=== PATIENT | female | born 1985 | race Caucasian/White ===

== ENCOUNTER 2019-07-06 08:32 | Emergency (ER) | payer OTHER ==
[~2019-07-06] VITALS: Ht 160 cm; Wt 113.4 kg
[2019-07-06] MEDS ORDERED: THYROMIN (08:46)
[2019-07-06] MEDS ORDERED: MINIVELLE1 EAC1 TOP (08:46)
[2019-07-06] MEDS ORDERED: TESSALON PERLE100 M1 PO (08:50)
[2019-07-06] MEDS ORDERED: VENTOLIN HFA 1818 GM INH (08:50)
[2019-07-06 09:39] VITALS: BP 132/72
== END 2019-07-06 09:40 | disposition home or self-care (01) ==
LOC: M.ERS 08:32
DX: J00 Acute nasopharyngitis [common cold] (principal); E03.9 Hypothyroidism, unspecified; Z88.1 Allergy status to other antibiotic agents; Z88.8 Allergy status to other drugs, medicaments and biological substances; Z85.41 Personal history of malignant neoplasm of cervix uteri

== ENCOUNTER 2020-08-17 14:56 | Emergency (ER) | payer OTHER ==
[~2020-08-17] VITALS: Ht 162.6 cm; Wt 127.0 kg
[~2020-08-17 14:56] MED LIST: MINIVELLE1 EAC1 TOP; TESSALON PERLE100 M1 PO; THYROMIN; VENTOLIN HFA 1818 GM INH
[2020-08-17] MEDS ORDERED: PROTONIX40 M2 PO (15:14)
[2020-08-17] MEDS ORDERED: SYNTHROID200 MCG PO (15:14)
[2020-08-17] MEDS ORDERED: ZOFRAN ODT4 MG PO (15:14)
[2020-08-17 15:45] LABS: INFLUENZA A ANTIGEN Negative (Negative); INFLUENZA B ANTIGEN Negative (Negative)
[2020-08-17] MEDS ORDERED: MECLIZINE HCL25 MG PO ×2 (16:47→16:57)
[2020-08-17] MEDS ORDERED: VENTOLIN HFA 1818 GM INH ×2 (16:47→16:57)
[2020-08-17 17:07] VITALS: BP 130/70
== END 2020-08-17 17:07 | disposition home or self-care (01) ==
LOC: M.ERS 14:56
PROVIDERS: Nurse Practitioner Family
DX: U07.1 COVID-19 (principal); E03.9 Hypothyroidism, unspecified; M79.7 Fibromyalgia; Z90.710 Acquired absence of both cervix and uterus; Z90.49 Acquired absence of other specified parts of digestive tract; Z88.3 Allergy status to other anti-infective agents; Z79.899 Other long term (current) drug therapy

== ENCOUNTER 2020-11-03 10:45 | Emergency (ER) | payer OTHER ==
[~2020-11-03] VITALS: Ht 160 cm; Wt 127.0 kg
[~2020-11-03 10:45] MED LIST changes: +MECLIZINE HCL25 MG PO; +PROTONIX40 M2 PO; +SYNTHROID200 MCG PO; +ZOFRAN ODT4 MG PO
[2020-11-03] MEDS ORDERED: CLIMARA1 EAC3 TRANSDERM (10:59)
[2020-11-03 11:22] LABS: ABSOLUTE EOSINOPHILS 0.1 thou/uL (0.0-0.7); ABSOLUTE LYMPHOCYTES 0.6 thou/uL (0.8-5.3); ABSOLUTE MONOCYTES 0.4 thou/uL (0.0-1.2); BASOPHILS 0.9 %; EOSINOPHILS 1.8 %; HEMATOCRIT 42.9 % (37.0-47.0); HEMOGLOBIN 14.6 gm/dL (12.0-15.0); LYMPHOCYTES 15.3 %; MCH 29.9 pg (26.0-34.0); MCHC 34.1 g/dL (28.0-37.0); MCV 87.8 fL (80.0-100.0); MONOCYTES 9.6 %; MPV 7.1 fl. (7.2-11.1); NUCLEATED RBCS 0 /100WBC; PLATELET COUNT* 230 thou/uL (150-400); POLYS 72.4 %; RBC 4.89 mil/uL (4.20-5.00); RDW-CV 13.9 % (10.5-14.5); WBC 4.1 thou/uL (4.0-11.0)
[2020-11-03 11:34] LABS: CALCIUM 9.1 mg/dL (8.5-10.1); CREATININE 0.8 mg/dL (0.6-1.3)
[2020-11-03 11:39] LABS: ALBUMIN 3.6 g/dL (3.4-5.0); TOTAL BILIRUBIN 0.6 mg/dL (<0.1-1.0); TOTAL PROTEIN 7.6 g/dL (6.4-8.2)
[2020-11-03 11:55] LABS: URINE BILIRUBIN NEGATIVE (Negative); URINE BLOOD NEGATIVE (Negative); URINE CLARITY CLEAR; URINE COLOR YELLOW; URINE GLUCOSE-RANDOM NEGATIVE (Negative); URINE KETONES NEGATIVE (Negative); URINE LEUKOCYTES-REFLEX NEGATIVE (Negative); URINE NITRITE-REFLEX NEGATIVE (Negative); URINE PROTEIN NEGATIVE (Negative); URINE SPECIFIC GRAVITY >= 1.030 (1.005-1.030); URINE UROBILINOGEN 0.2 E.U./dl (0.2-1.0)
[2020-11-03] MEDS ORDERED: ONDANSETRON ODT4 MG PO (12:56)
[2020-11-03] MEDS ORDERED: APAP W/CODEINE1 TA2 PO (12:58)
[2020-11-03 13:17] VITALS: BP 114/65
== END 2020-11-03 13:17 | disposition home or self-care (01) ==
LOC: M.ERS 10:45
PROVIDERS: Physician Assistant
DX: R11.2 Nausea with vomiting, unspecified (principal); M25.572 Pain in left ankle and joints of left foot; R19.7 Diarrhea, unspecified; R10.84 Generalized abdominal pain; M79.7 Fibromyalgia; E03.9 Hypothyroidism, unspecified; Z90.711 Acquired absence of uterus with remaining cervical stump; Z85.41 Personal history of malignant neoplasm of cervix uteri; Z79.899 Other long term (current) drug therapy; Z88.1 Allergy status to other antibiotic agents; Z88.8 Allergy status to other drugs, medicaments and biological substances; Z91.010 Allergy to peanuts

== ENCOUNTER 2020-11-19 21:18 | Emergency (ER) | payer OTHER ==
[~2020-11-19] VITALS: Ht 160 cm; Wt 122.5 kg
[~2020-11-19 21:18] MED LIST changes: +APAP W/CODEINE1 TA2 PO; +CLIMARA1 EAC3 TRANSDERM; +ONDANSETRON ODT4 MG PO
[2020-11-19 22:05] LABS: ABSOLUTE BASOPHILS 0.1 thou/uL (0.0-0.2); ABSOLUTE EOSINOPHILS 0.1 thou/uL (0.0-0.7); ABSOLUTE LYMPHOCYTES 0.9 thou/uL (0.8-5.3); ABSOLUTE MONOCYTES 0.6 thou/uL (0.0-1.2); BASOPHILS 1.1 %; EOSINOPHILS 1.9 %; HEMATOCRIT 40.2 % (37.0-47.0); HEMOGLOBIN 13.6 gm/dL (12.0-15.0); LYMPHOCYTES 19.1 %; MCH 29.7 pg (26.0-34.0); MCHC 33.9 g/dL (28.0-37.0); MCV 87.7 fL (80.0-100.0); MONOCYTES 13.2 %; MPV 7.2 fl. (7.2-11.1); NUCLEATED RBCS 0 /100WBC; PLATELET COUNT* 218 thou/uL (150-400); POLYS 64.7 %; RBC 4.58 mil/uL (4.20-5.00); RDW-CV 13.2 % (10.5-14.5); WBC 4.7 thou/uL (4.0-11.0)
[2020-11-19 22:13] LABS: CALCIUM 8.8 mg/dL (8.5-10.1); CREATININE 0.9 mg/dL (0.6-1.3); POTASSIUM 4.2 mmol/L (3.5-5.1)
[2020-11-19 22:16] LABS: APTT 26.6 Seconds (25.0-31.3); INR 0.9
[2020-11-19 22:17] LABS: ALBUMIN 3.5 g/dL (3.4-5.0); TOTAL BILIRUBIN 0.5 mg/dL (<0.1-1.0); TOTAL PROTEIN 7.4 g/dL (6.4-8.2); URIC ACID* 4.9 mg/dL (2.6-7.2)
[2020-11-20] MEDS ORDERED: KEFLEX500 M1 PO (00:33)
[2020-11-20 00:50] VITALS: BP 146/97
== END 2020-11-20 00:52 | disposition home or self-care (01) ==
LOC: M.ERS 21:18
PROVIDERS: Personal Emergency Response Attendant
DX: L03.116 Cellulitis of left lower limb (principal); E03.9 Hypothyroidism, unspecified; M79.7 Fibromyalgia; K58.9 Irritable bowel syndrome, unspecified; Z88.1 Allergy status to other antibiotic agents; Z88.8 Allergy status to other drugs, medicaments and biological substances; Z90.710 Acquired absence of both cervix and uterus; Z91.018 Allergy to other foods; Z85.41 Personal history of malignant neoplasm of cervix uteri